=== PATIENT | male | born 1970 | race Hispanic/Latino ===

== ENCOUNTER 2020-11-30 21:20 | Emergency (ER) | payer SELFPAY ==
[2020-11-30 21:58] LABS: #Eosinphils 0.2 thou/uL (0.0-0.7); #Lymphocytes 1.9 thou/uL (1.20-3.40); #Monocytes 0.8 thou/uL (0.11-0.59); #Neutrophils 3.1 thou/uL (1.40-6.50); %Basophils 0.7 % (0.0-1.0); %Eosinophils 2.8 % (0.0-10.0); %Lymphocytes 31.8 % (21.0-51.0); %Neutrophils 51.8 % (42.0-75.0); Hemoglobin 14.6 g/dL (14.0-18.0); Mean Corpuscular HGB CONC 33.4 g/dL (32.0-36.0); Mean Corpuscular Hemoglobin 32.8 pg (27.0-31.0); Mean Corpuscular Volume 98.2 fL (78.0-98.0); Mean Platelet Volume 8.3 fL (7.4-10.4); Platelet Count 249 thou/uL (130-400); RBC Distribution Width 11.7 % (11.5-14.5); Red Blood Cell (RBC) Count 4.45 mill/uL (4.70-6.10)
[2020-11-30 22:31] LABS: ALT (SGPT) 22 U/L (8-55); AST (SGOT) 20 U/L (5-34); Alkaline Phosphatase 57 U/L (40-110); Anion Gap 12 mmol/L (10-20); BUN (Urea Nitrogen) 11 mg/dL (8.4-25.7); Bilirubin, Total 0.2 mg/dL (0.2-1.2); Calc. Creatinine Clearance 0 mL/min (70-130); Calcium 8.9 mg/dL (7.8-10.44); Carbon Dioxide 23 mmol/L (22-29); Chloride 110 mmol/L (98-107); Globulin 2.7 g/dL (2.4-3.5); Glucose 102 mg/dL (70-105); Potassium 4.4 mmol/L (3.5-5.1); Protein, Total 6.7 g/dL (6.0-8.3); Sodium 141 mmol/L (136-145)
== END 2020-12-01 01:54 | disposition home or self-care (01) ==
LOC: ERS 21:20
DX: U07.1 COVID-19 (principal)
CPT/HCPCS: 36415; 71045; 80053; 82550; 83880; 84484; 85025; 93005

== ENCOUNTER 2021-06-04 00:20 | Emergency (ER) | payer OTHER, SELFPAY ==
[2021-06-04] MEDS ORDERED: Dexamethasone 10 MG/ML VIAL ONE (02:10)
[2021-06-04] MEDS ORDERED: hydrOXYzine 25 MG TAB ONE (02:10)
== END 2021-06-04 02:23 | disposition home or self-care (01) ==
LOC: ERS 00:20
DX: J30.9 Allergic rhinitis, unspecified (principal); H10.13 Acute atopic conjunctivitis, bilateral
CPT/HCPCS: 99283; J1100